=== PATIENT | male | born 1990 | race Caucasian/White ===

== ENCOUNTER 2017-05-31 19:14 | Emergency (ER) | payer OTHER ==
[~2017-05-31] VITALS: Ht 182.9 cm; Wt 66.3 kg
[~2017-05-31 19:14] MED LIST: AMIT10TA PO
[2017-05-31 19:16] VITALS: BP 119/80
[2017-05-31 20:12] LABS: BASOPHILS # (AUTO) 0.09 x10^3/uL (0-0.1); BASOPHILS % (AUTO) 1 % (0-1); EOSINOPHILS % (AUTO) 3 % (1-7); LYMPHOCYTES # (AUTO) 3.02 x10^3/uL (1-3.4); LYMPHOCYTES % (AUTO) 31 % (22-44); MD NO; MEAN CORPUSCULAR HGB CONC 33.4 g/dL (33.2-36.2); MEAN CORPUSCULAR VOLUME 89.8 fL (81-97); MEAN PLATELET VOLUME 8.5 fL (7.4-10.4); MONOCYTES # (AUTO) 0.64 x10^3/uL (0.2-0.8); MONOCYTES % (AUTO) 7 % (2-9); NEUTROPHILS # (AUTO) 5.63 x10^3/uL (1.8-6.8); NEUTROPHILS % (AUTO) 58 % (42-75); PLATELET COUNT 270 x10^3/uL (130-400); RED BLOOD COUNT 5.32 x10^6/uL (4.38-5.82); RED CELL DISTRIBUTION WIDTH 12.9 % (9.4-14.8)
[2017-05-31 20:25] LABS: ALANINE AMINOTRANSFERASE 23 U/L (12-78); ALBUMIN 4.6 g/dL (3.4-5.0); ANION GAP 8 mmol/L (5-15); CALCIUM 9.3 mg/dL (8.5-10.1); CHLORIDE 104 mmol/L (98-107); CREATININE 1.28 mg/dL (0.7-1.3)
[2017-05-31 20:27] LABS: ALKALINE PHOSPHATASE 69 U/L (45-117); BILIRUBIN,TOTAL 0.5 mg/dL (0.2-1.0)
[2017-05-31] MEDS ORDERED: KETOROLAC 30 MG/1 ML IM ONE (21:30)
[2017-05-31] MEDS ORDERED: ONDANSETRON ODT 4 MG PO ONE (21:30)
[2017-05-31] MEDS ORDERED: KETOROLAC 30 MG/1 ML ONE (21:57)
[2017-05-31] MEDS ORDERED: ONDANSETRON ODT 4 MG ONE (21:58)
== END 2017-05-31 22:18 | disposition home or self-care (01) ==
LOC: ED 21:47
DX: R10.11 Right upper quadrant pain (principal); R10.13 Epigastric pain; K82.8 Other specified diseases of gallbladder; F17.200 Nicotine dependence, unspecified, uncomplicated; Z88.5 Allergy status to narcotic agent
CPT/HCPCS: 36415; 76700; 80053; 83690; 85025; 96372; 99285; J1885; Q0162

== ENCOUNTER 2019-04-17 11:22 | Emergency (ER) | payer OTHER ==
[~2019-04-17] VITALS: Ht 182.9 cm; Wt 69.6 kg
--- NOTE | 2019-04-17 11:35 | NUR ---
PT HERE WITH C/O RIGHT SIDED NECK PAIN THAT RADIATES TO SHOULDER AFTER STRETCHING THIS MORNING.
[2019-04-17] MEDS ORDERED: DIAZEPAM 5 MG TABLET ONE (11:59)
[2019-04-17] MEDS ORDERED: KETOROLAC 30 MG/1 ML ONE (12:00)
[2019-04-17] MEDS ORDERED: KETOROLAC 30 MG/1 ML IM ONE (12:00)
[2019-04-17] MEDS ORDERED: DIAZEPAM 5 MG TABLET PO ONE (12:00)
--- NOTE | 2019-04-17 12:03 | NUR ---
PT MEDICATED PER ORDERS.
--- NOTE | 2019-04-17 12:15 | NUR ---
REPORT GIVEN TO JESSICA XIE.
--- NOTE | 2019-04-17 12:15 | NUR ---
THIS RN NOTIFIED BY [facility] THAT PT HAD SYNCOPAL EPISODE IN XRAY. COAT FITTER IN RADIOLOGY ROOM AND PT TO ROOM 22 VIA WHEELCHAIR AND STAFF. PA AWARE.
--- NOTE | 2019-04-17 12:34 | NUR ---
REPORT FROM JESSICA ROQUE. PT WAS IN XRAY WHEN HE BEGAN TO NOT FEEL WELL, AND ALERTED THE TECH. PT THEN EXPERIENCED A SYNCOPAL EPISODE LASTING APPROX 20 SECONDS. STAFF WERE ON HAND TO SUPPORT PT AND PREVENT INJURY. PT PLACED IN WHEELCHAIR AND MOVED TO ROOM 22 UNDER THIS NURSE'S CARE. PT ATTACHED TO MONITORS, EKG PERFORMED, FSBG 91 PER HOSPITAL GLUCOMETER. ERP NOTIFIED. PT PROVIDED WITH FOOD PER PROVIDER REQUEST. DENIES ANY FURTHER NEEDS OR CONCERNS AT THIS TIME, CALL LIGHT IN REACH.
[2019-04-17] MEDS ORDERED: HYDROcodone/APAP 5/325 TABLET ONE (13:26)
[2019-04-17] MEDS ORDERED: HYDROcodone/APAP 5/325 TABLET PO ONE (13:30)
[2019-04-17 14:03] VITALS: BP 116/72
== END 2019-04-17 14:50 | disposition home or self-care (01) ==
LOC: ED 12:36
DX: G24.3 Spasmodic torticollis (principal); R55 Syncope and collapse; Z87.891 Personal history of nicotine dependence
CPT/HCPCS: 72050; 82962; 93005; 96372; 99283; J1885

== ENCOUNTER 2020-02-27 20:03 | Emergency (ER) | payer OTHER ==
[~2020-02-27] VITALS: Ht 182.9 cm; Wt 72.3 kg
[2020-02-27] MEDS ORDERED: ONDANSETRON 2MG/ML, 2ML IVPush ONE (20:30)
[2020-02-27] MEDS ORDERED: MORPHINE SULFATE 4 MG/ML, 1ML IVPush PRN (20:30)
[2020-02-27] MEDS ORDERED: ONDANSETRON 2MG/ML, 2ML ONE (20:37)
[2020-02-27] MEDS ORDERED: MORPHINE SULFATE 4 MG/ML, 1ML ONE (20:38)
[2020-02-27 20:48] LABS: BASOPHILS % (AUTO) 1 % (0-1); EOSINOPHILS % (AUTO) 5 % (1-7); LYMPHOCYTES % (AUTO) 49 % (22-44); MEAN CORPUSCULAR HGB CONC 34.2 g/dL (33.2-36.2); MEAN PLATELET VOLUME 8.2 fL (7.4-10.4); MONOCYTES % (AUTO) 9 % (2-9); NEUTROPHILS % (AUTO) 37 % (42-75); PLATELET COUNT 269 x10^3/uL (130-400); RED BLOOD COUNT 5.11 x10^6/uL (4.38-5.82); RED CELL DISTRIBUTION WIDTH 12.6 % (9.4-14.8)
[2020-02-27 20:50] LABS: MD NO
--- NOTE | 2020-02-27 20:53 | NUR ---
IV started by this RN, fluids hanging, zofran and morphine given. Pt going to US.
[2020-02-27 20:57] LABS: ALANINE AMINOTRANSFERASE 25 U/L (12-78); ALBUMIN 4.3 g/dL (3.4-5.0); ANION GAP 5 mmol/L (5-15); CALCIUM 9.4 mg/dL (8.5-10.1); CHLORIDE 108 mmol/L (98-107); CREATININE 1.29 mg/dL (0.7-1.3)
[2020-02-27 20:59] LABS: ALKALINE PHOSPHATASE 73 U/L (45-117); BILIRUBIN,TOTAL 0.4 mg/dL (0.2-1.0); TOTAL PROTEIN 7.7 g/dL (6.4-8.2)
[2020-02-27] MEDS ORDERED: SODIUM CHLORIDE 0.9% 1,000ML IVBOLUS ONE (21:00)
[2020-02-27 21:48] VITALS: BP 117/66
--- NOTE | 2020-02-27 22:04 | NUR ---
RN at bedside. NS infusing. Pt states pain 0/10 after morphine.
== END 2020-02-27 22:42 | disposition home or self-care (01) ==
LOC: ED 22:00
DX: R10.11 Right upper quadrant pain (principal); R11.10 Vomiting, unspecified; F17.290 Nicotine dependence, other tobacco product, uncomplicated
CPT/HCPCS: 36415; 76700; 80053; 83690; 85025; 96361; 96374; 96375; 99284; 99406; J2270; J2405; J7030